=== PATIENT | female | born 1980 | race Caucasian/White ===

== ENCOUNTER 2024-03-23 16:57 | Emergency (ER) | payer OTHER ==
[2024-03-23 17:30] VITALS: BP 141/81; PULSE 90; RESP 17; TEMP 98.7; BMI 29.8
[2024-03-23] MEDS ORDERED: ALBUTEROL SO4 2.5/IPRATROPIUM 0.5 INH SOL 3 ML VIAL.NEB. NEB ONE (18:10)
[2024-03-23] MEDS ORDERED: DEXAMETHASONE SOD PHOSPHATE 10 MG/1 ML VIAL ONE (18:10)
[2024-03-23] MEDS ORDERED: IBUPROFEN 600 MG TABLET (FP) PO ONE (18:10)
[2024-03-23] MEDS: DEXAMETHASONE LIQUID 0.5 MG/5 ML PO ONE (18:16)
[2024-03-23] MEDS: ALBUTEROL SO4 2.5/IPRATROPIUM 0.5 INH SOL 3 ML VIAL.NEB. NEB SCH (18:16)
[2024-03-23] MEDS: IBUPROFEN 600 MG TABLET (FP) PO ONE (18:16)
[2024-03-23 18:37] LABS: EPI CELLS 6 /uL (0-25.1); HYALINE CASTS 0 /uL (0-3.1); PH,URINE 5.5 (5.0-8.0); URINE APPEARANCE CLEAR; URINE BACTERIA 101 /uL (0-1359); URINE BILIRUBIN NEGATIVE (NEGATIVE); URINE COLOR YELLOW; URINE GLUCOSE (UA) NEGATIVE (NEGATIVE); URINE KETONE NEGATIVE (NEGATIVE); URINE LEUK ESTERASE NEGATIVE (NEGATIVE); URINE NITRITE NEGATIVE (NEGATIVE); URINE PROTEIN NEGATIVE (NEGATIVE); URINE RBC 9 /uL (0-23.9); URINE UROBILINOGEN 0.2 mg/dL (0.2-1.0); URINE WBC 9 /uL (0-25.8)
[2024-03-23 18:40] LABS: HCG,QUALITATIVE URINE Negative
== END 2024-03-23 19:24 | disposition home or self-care (01) ==
LOC: JERFT 16:57
PROC: 3E0F7GC Introduction of Other Therapeutic Substance into Respiratory Tract, Via Natural or Artificial Opening (ICD-10-PCS; principal; 2024-03-23)
DX: R05.9 Cough, unspecified (principal); R09.81 Nasal congestion; R51.9 Headache, unspecified; R11.0 Nausea; K59.00 Constipation, unspecified; J45.21 Mild intermittent asthma with (acute) exacerbation; J20.9 Acute bronchitis, unspecified; Z20.822 Contact with and (suspected) exposure to COVID-19
CPT/HCPCS: 0241U-QW; 71046-TC-FY; 81003; 84703; 87086; 99284-25

== ENCOUNTER 2024-09-05 14:25 | Emergency (ER) | payer OTHER ==
[2024-09-05 14:35] VITALS: BP 124/86; PULSE 91; RESP 18; TEMP 98.2; BMI 23.0
[2024-09-05] MEDS ORDERED: ALBUTEROL SO4 2.5/IPRATROPIUM 0.5 INH SOL 3 ML VIAL.NEB. NEB ONE ×2 (14:43→15:40)
[2024-09-05] MEDS: ALBUTEROL SO4 2.5/IPRATROPIUM 0.5 INH SOL 3 ML VIAL.NEB. NEB ONE ×2 (14:48→15:53)
[2024-09-05] MEDS ORDERED: predniSONE 20 MG TABLET (UD) ONE (15:40)
[2024-09-05] MEDS: predniSONE 20 MG TABLET (UD) PO ONE (15:53)
== END 2024-09-05 16:36 | disposition home or self-care (01) ==
LOC: JER 14:25
PROC: 3E0F7GC Introduction of Other Therapeutic Substance into Respiratory Tract, Via Natural or Artificial Opening (ICD-10-PCS; principal; 2024-09-05)
PROC: 3E0F7GC Introduction of Other Therapeutic Substance into Respiratory Tract, Via Natural or Artificial Opening (ICD-10-PCS; 2024-09-05)
DX: J45.901 Unspecified asthma with (acute) exacerbation (principal); R09.89 Other specified symptoms and signs involving the circulatory and respiratory systems; R06.02 Shortness of breath
CPT/HCPCS: 71046-TC-FY; 99284-25